=== PATIENT | male | born 2000 | race Caucasian/White ===

== ENCOUNTER 2018-03-23 18:12 | Emergency (ER) | payer OTHER ==
[~2018-03-23] VITALS: Ht 165.1 cm; Wt 59.0 kg
[2018-03-23 18:19] VITALS: Ht 165.1 cm; Wt 59.0 kg
[2018-03-23 20:37] VITALS: BP 124/74
== END 2018-03-23 20:37 | disposition home or self-care (01) ==
LOC: ED 18:12
DX: S61.205A Unspecified open wound of left ring finger without damage to nail, initial encounter (principal); F41.9 Anxiety disorder, unspecified; J45.909 Unspecified asthma, uncomplicated; Z90.89 Acquired absence of other organs; W22.8XXA Striking against or struck by other objects, initial encounter; Y93.89 Activity, other specified; Y92.89 Other specified places as the place of occurrence of the external cause; Y99.0 Civilian activity done for income or pay
CPT/HCPCS: A4570; Q0092

== ENCOUNTER 2018-03-27 14:10 | Emergency (ER) | payer OTHER | END 2018-03-27 14:42 | disposition other institution (70) | LOC: ED 14:10 | DX: Z02.89 Encounter for other administrative examinations (principal) ==

== ENCOUNTER 2018-03-27 14:10 | Emergency (ER) | payer OTHER ==
[~2018-03-27] VITALS: Ht 165.1 cm; Wt 56.7 kg
[2018-03-27 14:27] VITALS: BP 119/99
== END 2018-03-27 14:42 | disposition other institution (70) ==
LOC: ED 14:10
DX: S61.205A Unspecified open wound of left ring finger without damage to nail, initial encounter (principal); J45.909 Unspecified asthma, uncomplicated; F41.9 Anxiety disorder, unspecified; X58.XXXA Exposure to other specified factors, initial encounter; Y93.89 Activity, other specified; Y92.89 Other specified places as the place of occurrence of the external cause; Y99.8 Other external cause status